=== PATIENT | male | born 1955 | race Caucasian/White ===

== ENCOUNTER 2021-08-29 07:31 | Outpatient (CLI) | payer MEDICARE, SELFPAY ==
--- NOTE | 2021-08-29 | EST_ITS ---
Patient Info Name: Horacio Fan Age: 66 years : 1955 Gender: Male Ht: 73 in Wt: 220 lbs BSA: 2.29 m2 Technical Quality: Good Exam Date: 08/29/2021 8:41 AM Exam Location: [facility] Patient Status: Outpatient Admit Date: 08/29/2021 Staff Ordering Physician: Niranjan Bo MD Acquisition Analyst: Janeth Hodges RDCS Attending Provider: Niranjan Bo MD Exercise Technologist: Usha Brown CT Exercise Physician: Niranjan Quiles MD Exam Type: CA stress echo Study Info Indications R07.9 - Chest pain, unspecified Treadmill exercise stress echocardiogram is performed. Summary 1. Normal sinus rhythm - normal ECG. 2. No abnormal ST/T wave changes with exercise. 3. Occasional PVCs. 4. Normal size and contractility. 5. All segments become normally hyperdynamic following treadmill exercise. 6. Negative exercise stress echo ischemia at 88% of age predicted maximum heart rate. Stress Echo Findings Left Ventricle Normal size and contractility. All segments become normally hyperdynamic following treadmill exercise. Protocol: Brian Stress ECG Details Stage: REST Duration (min): 2 min : 10 sec Speed (mph): 0.0 Grade (%): 0 HR (bpm): 62 SBP (mmHg): 154 DBP (mmHg): 78 METS: --- Stage: REST Duration (min): 47 min : 46 sec Speed (mph): 0.0 Grade (%): 0 HR (bpm): 74 SBP (mmHg): 154 DBP (mmHg): 78 METS: --- Stage: STAGE 1 Duration (min): 1 min : 0 sec Speed (mph): 1.7 Grade (%): 10 HR (bpm): 92 SBP (mmHg): 154 DBP (mmHg): 78 METS: --- Stage: STAGE 1 Duration (min): 2 min : 0 sec Speed (mph): 1.7 Grade (%): 10 HR (bpm): 96 SBP (mmHg): 154 DBP (mmHg): 78 METS: --- Stage: STAGE 1 Duration (min): 3 min : 0 sec Speed (mph): 1.7 Grade (%): 10 HR (bpm): 99 SBP (mmHg): 188 DBP (mmHg): 64 METS: --- Stage: STAGE 2 Duration (min): 1 min : 0 sec Speed (mph): 2.5 Grade (%): 12 HR (bpm): 99 SBP (mmHg): 188 DBP (mmHg): 64 METS: --- Stage: STAGE 2 Duration (min): 2 min : 0 sec Speed (mph): 2.5 Grade (%): 12 HR (bpm): 102 SBP (mmHg): 206 DBP (mmHg): 72 METS: --- Stage: STAGE 2 Duration (min): 3 min : 0 sec Speed (mph): 2.5 Grade (%): 12 HR (bpm): 106 SBP (mmHg): 206 DBP (mmHg): 72 METS: --- Stage: STAGE 3 Duration (min): 1 min : 0 sec Speed (mph): 3.4 Grade (%): 14 HR (bpm): 112 SBP (mmHg): 206 DBP (mmHg): 72 METS: --- Stage: STAGE 3 Duration (min): 2 min : 0 sec Speed (mph): 3.4 Grade (%): 14 HR (bpm): 116 SBP (mmHg): 207 DBP (mmHg): 80 METS: --- Stage: STAGE 3 Duration (min): 3 min : 0 sec Speed (mph): 3.4 Grade (%): 14 HR (bpm): 118 SBP (mmHg): 206 DBP (mmHg): 81 METS: --- Stage: STAGE 4 Duration (min): 0 min : 51 sec Speed (m
--- NOTE | ~2021-08-29 | US_ITS ---
EXAMINATION: US aorta [facility] DATE: 08/29/2021 08:46 CLIENT SUCCESS SPECIALIST INDICATION: Abdominal aortic aneurysm screening. Hypertension. History of smoking. TECHNIQUE: Grayscale, color Doppler, and pulsed Doppler images of the aorta and common iliac arteries were obtained. COMPARISON: None. FINDINGS: The proximal aorta measures 2.6 cm greatest sagittal dimension. The mid aorta measures 2.4 cm greates t sagittal dimension. The distal aorta measures 2.3 cm greatest sagittal dimension. The right common internal iliac artery measures 1.3 cm. The left common iliac artery measures 1.3 cm. IMPRESSION: 1. Normal caliber abdominal aorta without aneurysm. Reviewed, dictated and finalized at location B. NT SUCCESS SPECIALIST
== END 2021-08-29 07:32 | disposition home or self-care (01) ==
PROVIDERS: PCP Family Medicine; Visit Provider Family Medicine
DX: Z13.6 Encounter for screening for cardiovascular disorders (principal); R07.9 Chest pain, unspecified
CPT/HCPCS: 76706; 93351

== ENCOUNTER 2021-09-22 13:30 | Outpatient (CLI) | payer MEDICARE, SELFPAY | END 2021-09-22 13:31 | disposition home or self-care (01) | PROVIDERS: PCP Family Medicine; Visit Provider Family Medicine | DX: H91.90 Unspecified hearing loss, unspecified ear (principal) | CPT/HCPCS: 92557; 92567 ==

== ENCOUNTER 2022-01-26 08:26 | Outpatient (RCR) | payer MEDICARE, SELFPAY ==
[2022-01-26] MEDS: ACETAMINOPHEN 325 MG TABLET 650 MG PO (09:06)
[2022-01-26] MEDS: diphenhydrAMINE HCl CAP 25 MG CAPSULE PO (09:06)
[2022-01-26] MEDS: FAMOTIDINE 20 MG TABLET PO (09:06)
[2022-01-26 09:09] VITALS: BP 125/70; PULSE 84; TEMP 36.6; O2SAT 98
[2022-01-26] MEDS: BEBTELOVIMAB 175 MG/2 ML VIAL IV PUSH (09:26)
[2022-01-26 10:09] VITALS: BP 131/71; PULSE 72; O2SAT 98
== END 2022-01-26 16:00 ==
LOC: AMCINF 08:26
PROVIDERS: PCP Family Medicine; Visit Provider Internal Medicine Hematology & Oncology
DX: U07.1 COVID-19 (principal); I10 Essential (primary) hypertension
CPT/HCPCS: A9270; M0222; Q0222

== ENCOUNTER 2022-04-28 00:53 | Day surgery (SDC) | payer MEDICARE, SELFPAY ==
[2022-04-13 13:42] VITALS: BMI 28.3
[2022-04-28 06:55] VITALS: BP 153/77; PULSE 55; RESP 21; TEMP 36.2; O2SAT 99
[2022-04-28] MEDS: LACTATED RINGERS 1,000 ML 150 ML IV CONT (07:04)
--- NOTE | 2022-04-28 07:35 | WPDANESEPPF ---
Anes - Initial Pre Proc Eval Procedure: Operation Date: 04/28/22 08:00 Proposed Procedures p Colonoscopy - Avinash Allen MD Date/Time: 04/28/22 07:35 Surgeon: Avinash Allen MD Pre Op Diagnosis: neoplasm screening Patient Data Age: 66 Gender: M Height: 1.85 m Weight: 96.1 kg Last Vital Signs Temp 97.1 F L 04/28/22 06:55 Pulse 55 L 04/28/22 06:55 Resp 21 H 04/28/22 06:55 BP 153/77 H 04/28/22 06:55 Pulse Ox 99 04/28/22 06:55 O2 Del Method Room Air 04/28/22 06:55 Allergies Allergy/AdvReac Type Severity Reaction Status Date / Time lisinopril AdvReac Unknown Cough Verified 04/28/22 06:52 Home Medications Medication Instructions Recorded Confirmed Type multivitamin 1 tablet PO DAILY 02/27/20 04/28/22 History cyclobenzaprine 10 mg tablet 10 mg PO TID PRN muscle spasm #30 04/08/20 04/28/22 Rx tabs finasteride 5 mg tablet 5 mg PO DAILY #90 tabs 06/06/21 04/28/22 Rx amlodipine 5 mg tablet See Rx Instructions .Route 09/28/21 04/28/22 Rx .COMPLEX #90 tabs hydrochlorothiazide 12.5 mg tablet 12.5 mg PO DAILY #90 tabs 12/06/21 04/28/22 Rx sertraline 50 mg tablet (Zoloft) 50 mg PO .q hs #90 tabs 12/06/21 04/28/22 Rx tamsulosin 0.4 mg capsule See Rx Instructions .Route 03/15/22 04/28/22 Rx .COMPLEX #90 caps alprazolam 0.25 mg tablet (Xanax) 0.25 mg PO TID PRN anxiety #30 tabs 03/20/22 04/28/22 Rx Patient hx anesthesia problems: none Family hx anesthesia problems: none Results Review: All pre-operative results and documents have been reviewed as part of the pre-operative evaluation. [facility] Past Medical History Medical History (Updated 03/20/22 @ 15:50 by Una Mckeon PA-C) Inguinal hernia (~2011) Surgical History Surgical History History of inguinal hernia repair (~2012) mesh Family History Family History Mother , age 82 Family history of diabetes mellitus in first degree relative Family history of congestive heart failure Diabetes mellitus Sibling , age 57 Family history of malignant neoplasm of breast in first degree relative Father , age 79 Diabetes mellitus Buerger's disease Heart disease Other Family history of malignant neoplasm of breast Social History Social History Smoking status: Never smoker Second hand tobacco smoke exposure: No Alcohol intake: current Drinks per week: 1 Substance use: never Substance use type: does not use Living arrangements: with family Spiritual care concerns: No Anes - Eval Final PreProcedure Day of Procedure 04/28/22 07:35 Patient weight: normal Heart: regular rate and rhythm Lungs: clear to auscultation Airway: Mallampati scale class II Neurological: alert and oriented Last oral intake: >/= 8 hours ASA classification: II Emergent: no Anesthetic plan: proceed Anesthesia type and monitoring: general GIVS and standard monitoring Results Review: All pre-operative results and documents have been reviewed as part of the pre-operative evaluation. Informed Consent: The patient's anesthetic plan and its attendant risks and benefits were discussed with the patient/family/POA. Questions were solicited and answers provided to the satisfaction of the patient/family/POA.
--- NOTE | 2022-04-28 07:54 | PM.HPGS ---
History of Present Illness History of Present Illness Consent: Risks, benefits, and alternatives have been discussed and questions answered. Patient agrees to proceed with procedure. Chief complaint: neoplasm screening Narrative: Horacio Fan is a 66 year old male Presents for screening colonoscopy. Patient's current weight appetite and bowel movements are normal. Patient denies abdominal pain. He has had no bleeding. Family history noncontributory. Patient's last exam 10 years ago was unremarkable. Review of Systems Review of Systems: Review of systems noncontributory. [facility] Past Medical History Medical History (Updated 04/28/22 @ 07:56 by Avinash Allen MD) Inguinal hernia (~2011) Surgical History Surgical History History of inguinal hernia repair (~2011) mesh Family History Family History Mother , age 82 Family history of diabetes mellitus in first degree relative Family history of congestive heart failure Diabetes mellitus Sibling , age 57 Family history of malignant neoplasm of breast in first degree relative Father , age 79 Diabetes mellitus Buerger's disease Heart disease Other Family history of malignant neoplasm of breast Social History Social History Smoking status: Never smoker Second hand tobacco smoke exposure: No Alcohol intake: current Drinks per week: 1 Substance use: never Substance use type: does not use Living arrangements: with family Spiritual care concerns: No Meds Home Medications and Allergies Home Medications Medication Instructions Recorded Confirmed Type multivitamin 1 tablet PO DAILY 02/27/20 04/28/22 History cyclobenzaprine 10 mg tablet 10 mg PO TID PRN muscle spasm #30 04/08/20 04/28/22 Rx tabs finasteride 5 mg tablet 5 mg PO DAILY #90 tabs 06/06/21 04/28/22 Rx amlodipine 5 mg tablet See Rx Instructions .Route 09/28/21 04/28/22 Rx .COMPLEX #90 tabs hydrochlorothiazide 12.5 mg tablet 12.5 mg PO DAILY #90 tabs 12/06/21 04/28/22 Rx sertraline 50 mg tablet (Zoloft) 50 mg PO .q hs #90 tabs 05/31/22 10/21/22 Rx tamsulosin 0.4 mg capsule See Rx Instructions .Route 03/15/22 04/28/22 Rx .COMPLEX #90 caps alprazolam 0.25 mg tablet (Xanax) 0.25 mg PO TID PRN anxiety #30 tabs 03/20/22 04/28/22 Rx Allergies Allergy/AdvReac Type Severity Reaction Status Date / Time lisinopril AdvReac Unknown Cough Verified 04/28/22 06:52 Vital Signs Vital Signs - 24 hr 04/28/22 06:55 Temperature 97.1 F L Pulse Rate 55 L Respiratory Rate 21 H Blood Pressure 153/77 H Pulse Oximetry 99 Oxygen Delivery Room Air Exam Narrative: Physical exam reveals patient to be alert. Vital signs stable. HEENT exam is unremarkable. Patient is anicteric. Lungs are clear to auscultation and percussion. Heart is without murmur or extra sounds. Abdomen bowel sounds are present soft nontender with no organomegaly. Digital external rectal exam is normal. Assessment and Plan Assessment and plan (1) Encounter for screening colonoscopy: Code(s): Z12.11 - Encounter for screening for malignant neoplasm of colon Status: Acute Assessment and Plan: Patient presents for screening colonoscopy. Appears to be at average risk for colon polyps.
[2022-04-28 08:27] VITALS: BP 117/75; PULSE 61; RESP 20; O2SAT 96
[2022-04-28 08:37] VITALS: BP 128/75; PULSE 58; RESP 14; O2SAT 98
[2022-04-28 08:47] VITALS: BP 139/85; PULSE 55; RESP 17; O2SAT 99
== END 2022-04-28 08:59 | disposition home or self-care (01) ==
PROVIDERS: PCP Family Medicine; Visit Provider Internal Medicine Gastroenterology
PROC: 0DJD8ZZ Inspection of Lower Intestinal Tract, Via Natural or Artificial Opening Endoscopic (ICD-10-PCS; CPT 45378; principal; 2022-04-28 08:00)
DX: Z12.11 Encounter for screening for malignant neoplasm of colon (principal); D12.4 Benign neoplasm of descending colon; K64.8 Other hemorrhoids
CPT/HCPCS: 45385; 88305; J2704; J7120

== ENCOUNTER → 2022-07-25 15:54 | Outpatient (CLI) | payer MEDICARE, SELFPAY ==
--- NOTE | ~2022-07-25 | XR_ITS ---
EXAMINATION: XR shoulder RT min 2V DATE: 07/25/2022 16:08 INDICATION: Right shoulder pain. TECHNIQUE: 4 views of right shoulder were obtained. COMPARISON: None. FINDINGS: Bone alignment is normal. No fracture. There is mild osteoarthritis of glenohumeral joint a nd moderate osteoarthritis of acromioclavicular joint. IMPRESSION: 1. Polyarticular osteoarthritis. Reviewed, dictated and finalized at location A. HING ASSOCIATE
== END ==
PROVIDERS: PCP Physician Assistant; Visit Provider Physician Assistant
DX: M19.011 Primary osteoarthritis, right shoulder (principal)
CPT/HCPCS: 73030

== ENCOUNTER → 2022-10-16 08:13 | Outpatient (CLI) | payer MEDICARE, SELFPAY ==
--- NOTE | ~2022-10-16 | MR_ITS ---
MRI of the right shoulder Technique: Axial proton-density fat-sat images, coronal proton density fat-sat and T2 fat-sat images, and sagittal T1-weighted and T2 fat-sat images were acquired. Clinical History: Pain Findings: There is severe AC joint degenerative change. There is prominent bony productive change at the distal clavicle, with small subacromial spur. Coracoclavicular ligaments are intact. Coracoacromi al and coracohumeral ligaments also probably intact. There is severe supraspinatus and infraspinatus tendinosis. There is probable mild bursal surface fra juma of the midportion of the supraspinatus tendon. No definite high-grade partial or full-thickness tear of the supraspinatus or infraspinatus tendon identified. Subscapularis tendon is completely torn and retracted to the level of glenoid. Tendon of the long head of the biceps is intact, with severe intra-articular tendinosis. No definite labral tear identified. There is mild chondromalacia of the humeral head. There is moderate glenohumeral joint effusion. Infe rior glenohumeral ligament is intact. There is probable minimal fatty infiltration of the subscapular is muscle belly. No other muscle atrophy or edema identified. There is minimal fluid distention of th e subacromial/subdeltoid bursa. Impression: Complete tear of the subscapularis tendon, as detailed above, probable minimal fatty infiltration of the muscle belly. Severe tendinosis of the supraspinatus, infraspinatus, and intra-articular biceps tendons. Probable m inimal bursal surface fraying of the supraspinatus tendon. Moderate glenohumeral joint effusion. Severe AC joint degenerative change. Mild subacromial/subdeltoid bursitis. Reviewed, dictated and finalized at location . Impression: Complete tear of the subscapularis tendon, as detailed above, probable minimal fatty infiltration of the muscle belly. Severe tendinosis of the supraspinatus, infraspinatus, and intra-articular dee ps tendons. Probable minimal bursal surface fraying of the supraspinatus tendon . Moderate glenohumeral joint effusion. Severe AC joint degenerative change. Mild subacromial/subdeltoid bursitis.
== END ==
PROVIDERS: PCP Family Medicine; Visit Provider Nurse Practitioner Family
DX: M25.411 Effusion, right shoulder (principal); M19.011 Primary osteoarthritis, right shoulder; M75.51 Bursitis of right shoulder; S46.811A Strain of other muscles, fascia and tendons at shoulder and upper arm level, right arm, initial encounter; X58.XXXA Exposure to other specified factors, initial encounter
CPT/HCPCS: 73221

== ENCOUNTER → 2023-05-18 11:24 | Outpatient (CLI) | payer MEDICARE, SELFPAY ==
--- NOTE | ~2023-05-18 | XR_ITS ---
EXAMINATION:XR cervical spine 4-5V DATE: 05/18/2023 11:59 INDICATION: Neck pain TECHNIQUE: AP, lateral, lateral swimmers and odontoid views of the cervical spine are provided. COMPARISON: None FINDINGS: There is straightening of the cervical spine which can be positional or due to muscular spa sm. There are 2 mm of retrolisthesis of C4 on C5 and 3 mm of retrolisthesis of C5 on C6. The odontoid process is intact. No fracture is identified. There is moderate loss of intervertebral disc space he ight at C4-5 and mild loss of disc space height at C5-6 and C6-7. There is multilevel moderate facet and uncovertebral joint osteoarthritis. Prevertebral soft tissues are normal. IMPRESSION: 1. Moderate cervical spondylosis without acute findings. Reviewed, dictated and finalized at location B. 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
== END ==
PROVIDERS: PCP Family Medicine; Visit Provider Family Medicine
DX: M79.631 Pain in right forearm (principal); M47.892 Other spondylosis, cervical region
CPT/HCPCS: 72050

== ENCOUNTER 2023-07-13 16:43 | Emergency (ER) | payer MEDICARE, SELFPAY ==
[2023-07-13 17:01] VITALS: BP 140/69; PULSE 72; RESP 18; TEMP 36.6; O2SAT 98
--- NOTE | 2023-07-13 17:09 | ED.EAR ---
HPI - Ear Problem General Stated complaint: foreign object lt ear Time Seen by Provider: 07/13/23 17:05 Source: patient Mode of arrival: ambulatory Limitations: no limitations History of Present Illness HPI Narrative: Horacio is a 67-year-old male patient presenting to the clinic today with complaints of a foreign body in the left ear. He reports that he believes his rubber cone from his hearing aid is stuck in his ear. Related Data Home Medications Medication Instructions Recorded Confirmed multivitamin 1 tablet PO DAILY 02/27/20 07/13/23 Allergies Allergy/AdvReac Type Severity Reaction Status Date / Time lisinopril AdvReac Unknown Cough Verified 07/13/23 17:10 [facility] Past Medical History Medical History (Updated 07/13/23 @ 17:10 by Eleno Brantley APRN) Inguinal hernia (~2011) Surgical History Surgical History History of inguinal hernia repair (~2011) mesh Family History Family History Mother , age 82 Family history of diabetes mellitus in first degree relative Family history of congestive heart failure Diabetes mellitus Sibling , age 57 Family history of malignant neoplasm of breast in first degree relative Father , age 79 Diabetes mellitus Buerger's disease Heart disease Other Family history of malignant neoplasm of breast Social History Social History Social History: Caffeine-soda Smoking status: Never smoker Second hand tobacco smoke exposure: No Alcohol intake: current Drinks per week: 1 Alcohol use details: beer Substance use: never Substance use type: does not use Lack of Transportation: No Lack of Food: Never True Current Housing: I Have Housing Concerned About Future Housing: No Difficulty Paying Gas/Electric Bills: No Difficulty Paying for Meds: No Currently Unemployed: No Education: Bachelor's Degree Difficulty w/ Childcare or Family Care: No Living arrangements: with family Spiritual care concerns: No Comments At the time of my signature, I reviewed and agree with the nursing past medical, surgical, social, and family history. There is no relevant family history pertinent to the patient complaint. Exam Narrative: General: Well-developed, well nourished, in no apparent distress Head: Normocephalic, atraumatic Eyes: Pupils equally round and reactive to light bilaterally, EOM intact, sclera and conjunctive clear, no discharge, lids normal Ears: TMs intact and clear, rubber hearing aid cover stuck in the left ear canal, removed using alligator forceps, ear canals clear, no drainage, grossly hearing normal. Nose: Nares patent, no discharge, no inflammation, no sinus tenderness. Mouth: Oropharynx without lesions or masses, good dentition, MMM. Neck: Supple, trachea midline, no enlargement of anterior or posterior cervical nodes, no thyroid masses or goiter palpable. Cardio: Regular rate and rhythm, s1 and s2 normal, no murmur appreciated. Resp: Clear to auscultation bilaterally anteriorly and posteriorly, no rhonchi, rales, wheezing or rubs Course Course Emergency Course: Portions of this record may have been created with voice recognition software. Level of Care: Express Care Visit Vital Signs Vital signs: Vital Signs Temperature 36.6 C 07/13/23 17:01 Pulse Rate 72 07/13/23 17:01 Respiratory Rate 18 07/13/23 17:01 Blood Pressure 140/69 07/13/23 17:01 Pulse Oximetry 98 07/13/23 17:01 Oxygen Delivery Room Air 07/13/23 17:01 Temperature 36.6 C 07/13/23 17:01 Pulse Rate 72 07/13/23 17:01 Respiratory Rate 18 07/13/23 17:01 Blood Pressure 140/69 07/13/23 17:01 Pulse Oximetry 98 07/13/23 17:01 Oxygen Delivery Room Air 07/13/23 17:01 Vital signs reviewed Medical De
== END 2023-07-13 17:14 | disposition home or self-care (01) ==
PROVIDERS: Emergency Provider Nurse Practitioner Family; PCP Family Medicine
DX: T16.2XXA Foreign body in left ear, initial encounter (principal); W44.8XXA Other foreign body entering into or through a natural orifice, initial encounter
CPT/HCPCS: 69200; 99212; G0463

== ENCOUNTER 2024-09-02 12:40 | Outpatient (CLI) | payer MEDICARE, SELFPAY ==
--- NOTE | ~2024-09-02 | XR_ITS ---
Cervical Spine: AP, lateral, open-mouth views Clinical History: Pain Findings: There is reversal of the normal cervical lordosis. No fracture or subluxation. There is adv anced degenerative disc narrowing at C4-C5, C5-C6, and C6-C7. There is moderate facet arthropathy thr oughout the cervical spine. Pre-vertebral soft tissues are unremarkable. Impression: Moderate to advanced degenerative spondylosis, as above. Reviewed, dictated and finalized at location M. E FILLER Impression: Moderate to advanced degenerative spondylosis, as above.
== END 2024-09-02 12:41 | disposition home or self-care (01) ==
PROVIDERS: PCP Nurse Practitioner Family; Visit Provider Nurse Practitioner Family
DX: M25.511 Pain in right shoulder (principal); M50.30 Other cervical disc degeneration, unspecified cervical region
CPT/HCPCS: 72040

== ENCOUNTER 2024-09-15 09:07 | Outpatient (CLI) | payer MEDICARE, SELFPAY ==
--- NOTE | ~2024-09-15 | MR_ITS ---
EXAMINATION: MR cervical spine wo con DATE: 09/15/2024 10:18 INDICATION: Neck pain. TECHNIQUE: Magnetic resonance imaging (MRI) of the cervical spine was performed without intravenous c ontrast. COMPARISON: Cervical spine radiographs 09/02/2024 FINDINGS: There is 5 degrees dextrocurvature of cervical spine. There is kyphosis of cervical spine. There is mild chronic anterior wedging of C4, C5, and C6 vertebral bodies. There is severely decrease d disc height at C4-C5 and moderately decreased disc height at C5-C6 and C6-C7. The spinal cord signa l intensity is normal. The following disc levels are specifically discussed: C2-C3: There is a central protrusion. There is mild left uncovertebral joint osteoarthritis. There is severe bilateral facet joint osteoarthritis. There is mild left neural foraminal stenosis. There is mild central canal stenosis. C3-C4: The disc is bulging. There is moderate bilateral uncovertebral joint osteoarthritis. There is moderate bilateral facet joint osteoarthritis. There is mild bilateral neural foraminal stenosis. The re is mild central canal stenosis with ventral indentation of the spinal cord. C4-C5: The disc does not extend beyond the endplate margin. There is severe bilateral uncovertebral j oint osteoarthritis. There is mild left facet joint osteoarthritis. There is mild right and moderate left neural foraminal stenosis. There is no central canal stenosis. C5-C6: The disc is bulging. There is severe bilateral uncovertebral joint osteoarthritis. There is mo derate bilateral facet joint osteoarthritis. There is mild right and severe left neural foraminal dougie nosis. There is moderate central canal stenosis with ventral and dorsal indentation of the spinal cor d. C6-C7: The disc is bulging. There is severe bilateral uncovertebral joint osteoarthritis. There is se candice bilateral facet joint osteoarthritis. There is moderate bilateral neural foraminal stenosis. The re is moderate central canal stenosis with ventral and dorsal indentation of the spinal cord. C7-T1: There is a central extrusion. There is no uncovertebral joint osteoarthritis. There is severe bilateral facet joint osteoarthritis. There is mild bilateral neural foraminal stenosis. There is mil d central canal stenosis. IMPRESSION: 1. Severe cervical spondylosis. Reviewed, dictated and finalized at location B.
--- NOTE | ~2024-09-15 | MR_ITS ---
EXAMINATION: MR shoulder RT wo con DATE: 09/15/2024 10:01 INDICATION: Right shoulder pain. TECHNIQUE: Magnetic resonance imaging (MRI) of the right shoulder was performed without intravenous c ontrast. Sequences included axial PD-weighted FS FSE, coronal oblique PD-weighted FS FSE and T2-weigh sydnie FS FSE, and sagittal oblique T2-weighted FS FSE and T1-weighted FSE. COMPARISON: Right shoulder radiographs 08/18/2024 FINDINGS: Coracoacromial arch: The acromion undersurface is curved in morphology (type II). There is severe acromioclavicular joint osteoarthritis. There is moderate subacromial/subdeltoid bursitis. Rotator cuff: There is an articular sided partial thickness tear involving supraspinatus and infraspinatus tendons measuring 2.8 cm anterior to posterior by 2.2 cm proximal to distal by up to 70% tendon thickness. Te res minor tendon is normal. There is a full-thickness tear of subscapularis tendon. There is moderate fatty atrophy of subscapularis muscle belly. Biceps tendon and glenoid labrum: Biceps tendon is in bicipital groove. There is a partial thickness tear of biceps tendon. There is a tear of anterosuperior glenoid labrum. Fluid: There is a small glenohumeral joint effusion. Bones/cartilage: There is shallow partial-thickness cartilage loss of glenoid and humeral head. Osteophytes are noted. IMPRESSION: 1. Full-thickness tear of subscapularis tendon. Articular-sided, partial-thickness tear of supraspina tus and infraspinatus tendons. 2. Mild glenohumeral joint chondrosis. 3. Partial tear of biceps tendon. 4. Severe acromioclavicular joint osteoarthritis. 5. Small glenohumeral joint effusion. 6. Moderate subacromial/subdeltoid bursitis. Reviewed, dictated and finalized at location B. IMPRESSION: 1. Full-thickness tear of subscapularis tendon. Articular-sided, partial-thickn ess tear of supraspinatus and infraspinatus tendons. 2. Mild glenohumeral joint chondrosis. 3. Partial tear of biceps tendon. 4. Severe acromioclavicular joint osteoarthritis. 5. Small glenohumeral joint effusion. 6. Moderate subacromial/subdeltoid bursitis.
== END 2024-09-15 09:08 | disposition home or self-care (01) ==
PROVIDERS: PCP Orthopaedic Surgery; Referring Provider Family Medicine; Visit Provider Nurse Practitioner Family
DX: M47.22 Other spondylosis with radiculopathy, cervical region (principal); M19.011 Primary osteoarthritis, right shoulder; M75.51 Bursitis of right shoulder; M75.101 Unspecified rotator cuff tear or rupture of right shoulder, not specified as traumatic
CPT/HCPCS: 72141; 73221

== ENCOUNTER 2024-09-17 09:44 | Outpatient (CLI) | payer MEDICARE, SELFPAY ==
--- NOTE | ~2024-09-17 | XR_ITS ---
CHEST RADIOGRAPH, PA AND LATERAL CLINICAL HISTORY: R05.9 - Cough, unspecified . COMPARISON: None available TECHNIQUE: PA and lateral views of the chest. FINDINGS The cardiomediastinal silhouette is unremarkable. The lungs are clear. Visualized osseous structures and soft tissues are unremarkable. IMPRESSION: No focal infiltrate or effusion. Reviewed, dictated and finalized at location A.
== END 2024-09-17 09:45 | disposition home or self-care (01) ==
PROVIDERS: PCP Nurse Practitioner Family; Visit Provider Nurse Practitioner Family
DX: R05.9 Cough, unspecified (principal)
CPT/HCPCS: 71046

== ENCOUNTER 2025-01-28 09:59 | Outpatient (CLI) | payer MEDICARE, SELFPAY ==
--- NOTE | 2025-01-28 11:30 | NEURO_ITS ---
Impression: # Complains of numbness and tingling of right hand. Non-diabetic. ? # Right ulnar neuropathy across the elbow. ? # Subtle evolving Carpal Tunnel Syndrome, bilaterally. ? # Needle/EMG exam mildly neurogenic in right 1st DI. ?Nerve Conduction Studies ?Stim Site NR Peak (ms) P-T Amp (?V) Site1 Site2 Delta-P (ms) Dist (cm) Juanito (m/s) Left Median Anti Sensory (2-3nd Digit) Wrist ? 3.5 27.4 Wrist 2-3nd Digit 3.5 14.0 40 Wrist ? 4.0 15.5 Wrist 2-3nd Digit 3.5 14.0 40 Right Median Anti Sensory (2-3nd Digit) Wrist ? 3.8 28.6 Wrist 2-3nd Digit 3.8 14.0 37 Wrist ? 4.2 26.6 Wrist 2-3nd Digit 3.8 14.0 37 Left Radial Anti Sensory (Base 1st Digit) Wrist ? 2.1 19.1 Wrist Base 1st Digit 2.1 0.0 Right Radial Anti Sensory (Base 1st Digit) Wrist ? 2.4 7.4 Wrist Base 1st Digit 2.4 0.0 Left Ulnar Anti Sensory (5th Digit) Wrist ? 2.8 59.4 Wrist 5th Digit 2.8 14.0 50 Right Ulnar Anti Sensory (5th Digit) Wrist ? 2.9 36.7 Wrist 5th Digit 2.9 14.0 48 ?Stim Site NR Onset (ms) O-P Amp (mV) Site1 Site2 Delta-0 (ms) Dist (cm) Juanito (m/s) Left Median Motor (Abd Poll Brev) Wrist ? 4.0 3.6 Elbow Wrist 5.9 32.0 54 Elbow ? 9.9 3.2 Right Median Motor (Abd Poll Brev) Wrist ? 3.8 1.9 Elbow Wrist 7.5 32.0 43 Elbow ? 11.3 1.5 Left Ulnar Motor (Abd Dig Minimi) Wrist ? 2.8 7.1 A Elbow Wrist 5.7 32.0 56 A Elbow ? 8.5 5.6 B Elbow Wrist 4.2 24.0 57 B Elbow ? 7.0 5.3 Right Ulnar Motor (Abd Dig Minimi) Wrist ? 3.0 5.8 A Elbow Wrist 7.6 32.0 42 A Elbow ? 10.6 5.1 B Elbow Wrist 4.7 23.0 49 B Elbow ? 7.7 5.4 Electromyography ?Side Muscle Nerve Root Ins Act Fibs Amp Dur Recrt Comment Right 1stDorInt Ulnar C8-T1 Nml Nml Nml >12ms +1 Right Ext Indicis Radial (Post Int) C7-8 Nml Nml Nml Nml Nml Right Ext Digitorum Radial (Post Int) C7-8 Nml Nml Nml Nml Nml Right BrachioRad Radial C5-6 Nml Nml Nml Nml Nml Right PronatorTeres Median C6-7 Nml Nml Nml Nml Nml Right Abd Poll Brev Median C8-T1 Nml Nml Nml Nml Nml Right ABD Dig Min Ulnar C8-T1 Nml Nml Nml Nml Nml Right FlexPolLong Median (Ant Int) C7-8 Nml Nml Nml Nml Nml Right Abd Poll Long Radial (Post Int) C7-8 Nml Nml Nml Nml Nml Left 1stDorInt Ulnar C8-T1 Nml Nml Nml Nml Nml Left Ext Indicis Radial (Post Int) C7-8 Nml Nml Nml Nml Nml Left Ext Digitorum Radial (Post Int) C7-8 Nml Nml Nml Nml Nml Left BrachioRad Radial C5-6 Nml Nml Nml Nml Nml Left PronatorTeres Median C6-7 Nml Nml Nml Nml Nml Left Abd Poll Brev Median C8-T1 Nml Nml Nml Nml Nml Left ABD Dig Min Ulnar C8-T1 Nml Nml Nml Nml Nml Left FlexPolLong Median (Ant Int) C7-8 Nml Nml Nml Nml Nml Left Abd Poll Long Radial (Post Int) C7-8 Nml Nml Nml Nml Nml
== END 2025-01-28 10:00 | disposition home or self-care (01) ==
PROVIDERS: PCP Family Medicine; Referring Provider Neurological Surgery; Visit Provider Physical Medicine & Rehabilitation Pain Medicine
DX: R20.0 Anesthesia of skin (principal); G56.01 Carpal tunnel syndrome, right upper limb
CPT/HCPCS: 95886; 95911

== ENCOUNTER 2025-04-07 11:22 | Outpatient (CLI) | payer MEDICARE, SELFPAY ==
--- NOTE | 2025-04-07 13:03 | ECG_ITS ---
Test Date: 2025-04-07 13:18:01 Measurements Intervals [place] Rate: 67 P: 78 TN: 178 QRS: -33 QRSD: 109 T: 24 QT: 397 QTc: 421 Interpretive Statements SINUS RHYTHM MARKED LEFT AXIS DEVIATION [QRS AXIS < -30] No previous ECG available for comparison Electronically Signed On 04-07-2025 14:45:45 CDT by Miroslava Johnson M.D.
[2025-04-07 14:21] LABS: Hematocrit 42.6 % (42.0-52.0); Hemoglobin 14.5 g/dL (14.0-18.0); Mean Corpuscular HGB Conc 34.0 g/dl (32-36); Mean Corpuscular Hemoglobin 30.1 pg (26-34); Mean Corpuscular Volume 88.6 fl (80-100); Platelet Count Result 193 k/mm3 (150-375); Red Blood Count 4.81 M/mm3 (4.6-6.20); White Blood Count 9.2 K/mm3 (4.5-10.0)
[2025-04-07 14:32] LABS: INR 1.0; Prothrombin Time 13.5 Seconds (11.1-14.7)
[2025-04-07 14:33] LABS: Partial Thromboplastin Time 27.0 Seconds (22.3-36.8)
[2025-04-07 14:45] LABS: Anion Gap 9 mmol/L (4-12); Blood Urea Nitrogen 24 mg/dL (9-20); Calcium 8.9 mg/dL (8.4-10.2); Carbon Dioxide 24 mmol/L (22-30); Chloride 106 mmol/L (98-107); Estimated Glomerular Filt Rate > 60; Glucose 94 mg/dL (65-110); Potassium 3.9 mmol/L (3.4-5.0); Sodium 139 mmol/L (137-145)
== END 2025-04-07 11:23 | disposition home or self-care (01) ==
PROVIDERS: PCP Family Medicine; Visit Provider Neurological Surgery
DX: R94.31 Abnormal electrocardiogram [ECG] [EKG] (principal); G56.20 Lesion of ulnar nerve, unspecified upper limb; I10 Essential (primary) hypertension
CPT/HCPCS: 36415; 80048; 85027; 85610; 85730; 93005

== ENCOUNTER 2025-04-21 01:23 | Day surgery (SDC) | payer MEDICARE, SELFPAY ==
[2025-04-07 12:27] VITALS: BP 123/70; PULSE 75; RESP 16; TEMP 36.8; O2SAT 98; BMI 28.6
--- NOTE | 2025-04-07 12:46 | PC.NURSE ---
[facility] has started construction of its new state of the art ER which will open Spring 2026. With this, we anticipate parking may be a challenge for some our surgical patients and families. Parking spaces are limited but are available for all Surgical, obstetrics, and ER patients sharing this lot. If you arrive and find you are having a hard time finding a parking space, please note that we understand the challenges, please drive around the hospital and park near Hospital Entrance 1. When you enter this entrance, you can ask a volunteer to direct or take you back to the surgical waiting area to check in. We appreciate everyone?s understanding of these expected challenges while we build for your future. Report to the Outpatient Waiting Room, entrance under the green pavilion located off [address], at time __12:00PM___ on date ___04/21/25__. Planned Procedure Time: __2:00PM____.? Time changes happen often and if your time is changed the preop area will call you the afternoon before. - You and your visitor will be asked to self-screen and do not enter if you have any COVID symptoms. Please call surgeon if you need to reschedule. - A mask is optional within the hospital at this time. Patients may have clear liquids (water, carbonated beverages, clear teas, apple juice) until 3 hours prior to surgery with a maximum of 20 ounces. - No food from midnight until time of surgery and no smoking, or chewing tobacco (or any form of nicotine). No chewing gum, candy or mints. Take only the following medications with a SIP of water on the morning of surgery: ____AMLODIPINE MAY TAKE ALPRAZOLAM NEEDED DO NOT STOP ANY OF YOUR OTHER PRESCRIPTION MEDICATIONS PRIOR TO SURGERY EXCEPT THE FOLLOWING Hold all vitamins and supplements for 3 days per anesthesiologist. LAST DOSE 04/17/25 Medications to discontinue per physician ___HOLD CELEBREX (ALL NSAIDS) 7 DAYS PRE-OP PER DR GAMEZ Date to take last dose 04/13/25 Please no make-up, nail portuguese, hairspray, perfume, deodorant, or body powder the day of surgery.? No jewelry (including any body piercings) or valuables the day of surgery, leave them at home.? Please take a shower or bath the night before, or the morning of, surgery with an antibacterial soap.? Wear comfortable, loose fitting clothing.? - Jewelry must be removed prior to entering the operating room.? Rings and piercings that are not removed may be cut off. - The hospital will not accept responsibility for valuables.? - Please leave all valuables, including medications, at home the day of surgery. If you are going home after surgery, a licensed locomotive driver must drive you home.? - NO public transportation without another adult if you receive anesthesia. - We recommend that an adult stay with you for 24 hours following discharge. - We also recommend that you do not drive, make important decision, drink alcoholic beverages, or take any drugs that were not prescribed by your health care provider for at least 24 hours after your discharge time. Follow any additional instructions given to you from your surgeon. Telephone instructions given to ____PATIENT & WIFE and asked if any additional questions and then verbalized understanding. Patient advised to call surgeon office or pre surgery nurse liaison [phone] if any additional questions.
[2025-04-21] VITALS (9 sets, daily range): BP systolic 135–163; BP diastolic 72–85; PULSE 52–83; RESP 15–20; TEMP 36.5; O2SAT 97–100
[2025-04-21] MEDS: LACTATED RINGERS 1,000 ML 30 ML IV CONT (13:00)
--- NOTE | 2025-04-21 16:05 | PM.IMHP ---
H&P: HPI History of Present Illness Date/Time: 04/21/25 16:05 Chief Complaint: Right upper extremity numbness and pain Narrative: Horacio a 69-year-old gentleman with a 3-4 month history of pain in his neck radiating into his right upper extremity with numbness that extends down to the ulnar digits of the hand. This occurred without inciting event but fairly abruptly. He has participated in physical therapy and the neck and upper extremity pain is somewhat better but the numbness persists. This causes him some dysfunction in the hand. The problems review coming distracting limiting for him on a daily basis. He has some nonspecific weakness in the right hand. He does not have bowel or bladder difficulty. He denies gait disturbance or imbalance. he sees Dr. Odilia Weeks about this problem and has had 1 injection without much benefit. An injection of the right C8 nerve root does not seem to have had much effect on the issues in the right hand. he has not changed appreciably since we last saw him. Review of Systems Review of Systems: All systems reviewed & are unremarkable except as noted in HPI and below Denies chills, Denies fever, Denies weight gain and Denies weight loss Eyes Denies change in vision and Denies diplopia ENT Denies disequilibrium Card Denies chest pain and Denies dyspnea Resp Denies cough and Denies dyspnea GI Denies abdominal pain, Denies change in bowel habits, Denies fecal incontinence and Denies vomiting Denies hematuria, Denies oliguria, Denies difficulty urinating, Denies dysuria, Denies urinary frequency, Denies urinary hesitancy, Denies urinary incontinence and Denies urinary urgency Musc Reports as per HPI Skin/ Breast Reports system reviewed and no additional complaints, except as documented Neuro Reports as per HPI Psych Reports no additional complaints, Denies depression and Denies hopelessness Endo Reports no additional complaints and Denies polyuria Paulo/ Lymph Reports no additional complaints Aller/ Immun Reports no additional complaints PMF Past Medical History Medical History (Updated 03/20/25 @ 11:16 by Toni Aldana APRN) Inguinal hernia (~2011) Surgical History Surgical History History of inguinal hernia repair (~2011) mesh Family History Family History Mother , age 82 Family history of diabetes mellitus in first degree relative Family history of congestive heart failure Diabetes mellitus Sibling , age 57 Family history of malignant neoplasm of breast in first degree relative Father , age 79 Diabetes mellitus Buerger's disease Heart disease Other Family history of malignant neoplasm of breast Social History Social History (Updated 03/20/25 @ 09:25 by Mahi Em [facility]) Social History: decaffeinated-coffee Smoking status: Never smoker Second hand tobacco smoke exposure: No Alcohol intake: current Drinks per week: 1 Alcohol use details: beer Substance use: never Substance use type: does not use Do You Feel Safe in your Home?: Yes Lack of Transportation: No Lack of Food: Never True Current Housing: I Have Housing Concerned About Future Housing: No Difficulty Paying Gas/Electric Bills: No Difficulty Paying for Meds: No Currently Unemployed: No Education: Bachelor's Degree Difficulty w/ Childcare or Family Care: No Living arrangements: with family Spiritual care concerns: No Meds Home Medications and Allergies Home Medications ?Medication ?Instructions ?Recorded ?Confirmed ?Type multivitamin 1 tablet PO DAILY 02/27/20 04/21/25 History dicyclomine 10 mg capsule 10 mg PO TID PRN abdominal pain 06/18/24 04/07/25 Rx #30 caps celecoxib 200 mg capsule 200 mg PO Q24H 12/18/24 04/21/25 History oxybutynin chloride 5 mg tablet 5 mg PO QHS #90 tabs 12/18/24 04/07/25 Rx tizanidine 4 mg tablet 4 mg PO Q8H PRN muscle spasticity 03/20/25 04/07/25 Rx #30 tabs alprazolam 0.25 mg tablet 0.25 mg PO TID PRN anxiety #30 tabs 03/23/25 04/21/25 Rx melatonin 5 mg tablet 5 mg PO HS 04/07/25 04/07/25 History amlodipine 5 mg tablet See Rx Instructions .Route 04/20/25 04/21/25 Rx .COMPLEX #90 tabs finasteride 5 mg tablet See Rx Instructions .Route 04/20/25 Rx .COMPLEX #90 tabs hydrochlorothiazide 12.5 mg tablet See Rx Instructions .Route 04/20/25 Rx .COMPLEX #90 tabs tamsulosin 0.4 mg capsule See Rx Instructions .Route 04/20/25 Rx .COMPLEX #90 caps Allergies Allergy/AdvReac Type Severity Reaction Status Date / Time lisinopril AdvReac Unknown Cough Verified 04/21/25 13:15 Vital Signs Vital Signs - 24 hr 04/21/25 12:30 Temperature 97.7 F Pulse Rate 56 L Respiratory Rate 16 Blood Pressure 135/85 Pulse Oximetry 98 Oxygen Delivery Room Air Exam Narrative: General: cooperative, no acute distress, well developed, alert and awake Orientation/Consciousness: oriented to person, oriented to place and oriented to time Constitutional Limitations: no limitations Other: The patient is a normally developed, normal appearing male sitting on the examination table in no acute distress. He is awake, alert, and oriented x3 with good fund of knowledge, recall of events, and fluent speech. HENMT Head: normocephalic and atraumatic Ears: external ears normal Face/Nose/Sinus: Normal external nose present Eyes Eyelids: eyelids normal Pupils: Yes Pupils normal by confrontation EOM: EOMs intact bilaterally Neck General: Yes no meningeal signs, Yes supple and Yes no JVD Resp Effort/Inspection: normal respiratory effort and able to speak in complete sentences Cardio Rate: Yes regular rate GI Inspection: No abdominal distension Musc Other: Examination of the neck reveals no tenderness. Range of motion of the neck is decreased in extension and right greater than left lateral rotation. Skin General: normal color Neuro General: Yes oriented to person, Yes oriented to place, Yes oriented to time, Yes normal cognition and Yes no meningeal signs Cranial Nerves: Yes CN's II-XII intact bilaterally Other: Motor: Strength is normal, 5/5, throughout all muscle groups of the bilateral upper extremities except right product accountant strength which is slightly decreased. There is no atrophy. Sensory: Sensation is intact to light touch throughout the upper extremities except in an ulnar distribution the right hand which is decreased but present. Reflexes: deep tendon reflexes were normal and symmetric at the knees and biceps bilaterally. There were difficult to elicit at the triceps bilaterally. There was no Mcmanus's. Gait: Gait, station, and transfers are independent and steady for short periods of time and over short distances. Psych Appearance: grossly normal Mental status: Yes mental status grossly normal Mood: congruent mood Affect: Yes normal affect Speech/Movement: Normal speech and movement present Attitude: Yes cooperative Thought Content: Normal thought content present Review of studies: EMG of the right upper extremity demonstrates an ulnar neuropathy at the elbow. Assessment and Plan Assessment and plan (1) Ulnar neuropathy at elbow: Code(s): G56.20 - Lesion of ulnar nerve, unspecified upper limb Status: Acute Plan Horacio is a 69-year-old gentleman who likely has a ulnar neuropathy at the elbow. He has limited distracted by the discomfort and has some weakness in the right hand. I therefore recommended him and ulnar neurolysis at the elbow on the right and described to him that operation, its risks, potential benefits, the operative and postoperative course in detail and answered all his questions personally. We discussed risks including but not limited to permanent neurologic deficit secondary to injury of the ulnar nerve or its branches, need for reoperation secondary to infection, bleeding, recurrent or residual pathology, failure of the procedure to relieve his pain or symptoms, persistent pain, medical complications related to anesthesia or surgery, etc.. He indicates understanding and elects to proceed with that operation.
--- NOTE | 2025-04-21 16:07 | WPDHPUPDATE1 ---
History and Physical Update Update Date/Time: 04/21/25 16:07 History and Physical has been reviewed, including an updated exam of the patient. There are NO changes in the patient's condition. Risks, benefits, and alternatives have been discussed and questions answered. Patient agrees to proceed with procedure.
--- NOTE | 2025-04-21 16:12 | WPDANESEPPF ---
Anes - Initial Pre Proc Eval Procedure: Operation Date: 04/21/25 14:00 Proposed Procedures p Right Ulnar Neurolysis at Elbow - Walker Ambriz MD Date/Time: 04/21/25 16:12 Surgeon: Walker Ambriz MD Pre Op Diagnosis: right ulnar neuropathy at the elbow Patient Data Age: 69 Gender: M Height: 1.85 m Weight: 99 kg Last Vital Signs Temp 36.5 C 04/21/25 12:30 Pulse 56 L 04/21/25 12:30 Resp 16 04/21/25 12:30 BP 135/85 04/21/25 12:30 Pulse Ox 98 04/21/25 12:30 O2 Del Method Room Air 04/21/25 12:30 Allergies Allergy/AdvReac Type Severity Reaction Status Date / Time lisinopril AdvReac Unknown Cough Verified 04/21/25 13:15 Home Medications ?Medication ?Instructions ?Recorded ?Confirmed ?Type multivitamin 1 tablet PO DAILY 02/27/20 04/21/25 History dicyclomine 10 mg capsule 10 mg PO TID PRN abdominal pain 06/18/24 04/07/25 Rx #30 caps celecoxib 200 mg capsule 200 mg PO Q24H 12/18/24 04/21/25 History oxybutynin chloride 5 mg tablet 5 mg PO QHS #90 tabs 12/18/24 04/07/25 Rx tizanidine 4 mg tablet 4 mg PO Q8H PRN muscle spasticity 03/20/25 04/07/25 Rx #30 tabs alprazolam 0.25 mg tablet 0.25 mg PO TID PRN anxiety #30 tabs 03/23/25 04/21/25 Rx melatonin 5 mg tablet 5 mg PO HS 04/07/25 04/07/25 History amlodipine 5 mg tablet See Rx Instructions .Route 04/20/25 04/21/25 Rx .COMPLEX #90 tabs finasteride 5 mg tablet See Rx Instructions .Route 04/20/25 Rx .COMPLEX #90 tabs hydrochlorothiazide 12.5 mg tablet See Rx Instructions .Route 04/20/25 Rx .COMPLEX #90 tabs tamsulosin 0.4 mg capsule See Rx Instructions .Route 04/20/25 Rx .COMPLEX #90 caps Patient hx anesthesia problems: none Family hx anesthesia problems: none Results Review: All pre-operative results and documents have been reviewed as part of the pre-operative evaluation. [facility] Past Medical History Medical History (Updated 04/21/25 @ 16:13 by Felix Dan MD) Ulnar neuropathy at elbow Overweight (BMI 25.0-29.9) HTN (hypertension), benign Inguinal hernia (~2011) Surgical History Surgical History History of inguinal hernia repair (~2011) mesh Family History Family History Mother , age 82 Family history of diabetes mellitus in first degree relative Family history of congestive heart failure Diabetes mellitus Sibling , age 57 Family history of malignant neoplasm of breast in first degree relative Father , age 79 Diabetes mellitus Buerger's disease Heart disease Other Family history of malignant neoplasm of breast Social History Social History Social History: decaffeinated-coffee Smoking status: Never smoker Second hand tobacco smoke exposure: No Alcohol intake: current Drinks per week: 1 Alcohol use details: beer Substance use: never Substance use type: does not use Do You Feel Safe in your Home?: Yes Lack of Transportation: No Lack of Food: Never True Current Housing: I Have Housing Concerned About Future Housing: No Difficulty Paying Gas/Electric Bills: No Difficulty Paying for Meds: No Currently Unemployed: No Education: Bachelor's Degree Difficulty w/ Childcare or Family Care: No Living arrangements: with family Spiritual care concerns: No Anes - Eval Final PreProcedure Day of Procedure 04/21/25 16:12 Patient weight: overweight Heart: regular rate and rhythm Lungs: clear to auscultation Airway: Mallampati scale class II Neurological: alert and oriented Last oral intake: >/= 8 hours ASA classification: II Emergent: no Anesthetic plan: proceed Anesthesia type and monitoring: general LMA and standard monitoring Results Review: All pre-operative results and documents have been reviewed as part of the pre-operative evaluation. Informed Consent: The patient's anesthetic plan and its attendant risks and benefits were discussed with the patient/family/POA. Questions were solicited and answers provided to the satisfaction of the patient/family/POA.
[2025-04-21] MEDS: ceFAZolin 2 GM in SODIUM CHLORIDE 0.9% IV 50 ML 100 ML IVPB (16:23)
[2025-04-21] MEDS: LIDO 1%/EPINEPHRINE/PF 1:200,000 30 ML VIAL 20 ML XX (16:31)
--- NOTE | 2025-04-22 15:51 | W.PM.PROC2 ---
Procedure Note - Detailed Date of Procedure 04/22/25 Pre-op Diagnosis right ulnar neuropathy at the elbow Post-op Diagnosis Same Procedure Performed Right ulnar neurolysis at the elbow. Surgeon Walker Ambriz MD Anesthesia General Description of Procedure The patient was brought to the operating room in the supine position, was sedated, intubated and placed under general anesthesia in routine fashion. his arm was placed out over an armboard. The operation around his elbow was examined, marked our incision, prepped and draped in routine sterile fashion. Incision was marked in a curvilinear fashion over the medial epicondyle of the right elbow. This area was injected with 0.5% lidocaine with 1 200,000 epinephrine. Intravenous antibiotics given prior to incision. Incision was made with a 10 blade scalpel into the subcutaneous tissues. Bovie cautery and sharp dissection was used to identify the medial epicondyle and to dissect through the soft tissues until the ulnar nerve was identified medial to the epicondyle. This was followed distally until the muscle fascia was identified. The muscle fascia was cut using Metzenbaum scissors. A Bhavna retractor was used to confirm lack of compression in the cubital tunnel. The wound was copiously irrigated with bacitracin irrigation all bleeding stopped with bipolar and Bovie cautery and Gelfoam thrombin powder. The wound was then closed in layered fashion with 3-0 Vicryl interrupted sutures in the dermis and a running 4-0 Monocryl subcuticular stitch in the skin was dressed with Dermabond. The patient was allowed to wake up in the operating room and was taken to the recovery room in stable condition. There were no immediate complications of this operation. All counts were reported correct at the end of the case. Blood loss was 5 cc. The patient was neurologically at his baseline postoperatively. Estimated Blood Loss 5 Complications None Condition Stable Disposition PACU [facility] Billing Surgery - Charge Forward: Surgery Billing
== END 2025-04-21 19:25 | disposition home or self-care (01) ==
PROVIDERS: PCP Family Medicine; Visit Provider Neurological Surgery
PROC: (CPT 64718; principal; 2025-04-21 14:00)
DX: G56.21 Lesion of ulnar nerve, right upper limb (principal); I10 Essential (primary) hypertension; Z79.1 Long term (current) use of non-steroidal anti-inflammatories (NSAID); Z98.890 Other specified postprocedural states; Z87.19 Personal history of other diseases of the digestive system; Z80.3 Family history of malignant neoplasm of breast; Z82.49 Family history of ischemic heart disease and other diseases of the circulatory system
CPT/HCPCS: 64718; J0690; A4565; J2003; J2004; J2704; J3010; J7120

== ENCOUNTER 2025-05-12 12:05 | Outpatient (CLI) | payer MEDICARE, SELFPAY ==
--- NOTE | ~2025-05-12 | XR_ITS ---
Examination: XR knee LT 3V Clinical History: M25.562 - Pain in left knee Comparison: None Technique: 4 views left knee Findings/impression: No acute findings- 1. No fracture, dislocation, or effusion left knee. 2. Chondrocalcinosis. 3. Mild medial compartment joint space narrowing. 4. Mild patellofemoral compartment joint space narrowing. Associated degenerative changes. 5. Peripheral arterial disease. Reviewed, dictated and finalized at location [facility]
== END 2025-05-12 12:06 | disposition home or self-care (01) ==
PROVIDERS: PCP Family Medicine; Visit Provider Nurse Practitioner Family
DX: M25.562 Pain in left knee (principal); I73.9 Peripheral vascular disease, unspecified
CPT/HCPCS: 73562